=== PATIENT | male | born 1985 | race Caucasian/White ===

== ENCOUNTER 2018-12-18 23:42 | Inpatient (IN) | payer OTHER ==
[~2018-12-18] VITALS: Ht 182.9 cm; Wt 78.0 kg
[2018-12-19 01:16] LABS: BASOPHILS % (AUTO) 1.2 % (0.0-2.0); EOSINOPHILS % (AUTO) 1.1 % (1.0-6.0); HEMATOCRIT 52.6 % (41-53); LYMPHOCYTES # (AUTO) 2.5 K/uL (1.0-4.8); LYMPHOCYTES % (AUTO) 27.1 % (22.0-44.0); MEAN CORPUSCULAR HEMOGLOBIN 32.2 pg (26.0-34.0); MEAN CORPUSCULAR HGB CONC 34.2 G/dL (31.0-37.0); MEAN CORPUSCULAR VOLUME 94 fL (80-100); MONOCYTES # (AUTO) 0.6 K/uL (0.1-1.0); MONOCYTES % (AUTO) 6.2 % (2.0-9.0); NEUTROPHILS # (AUTO) 5.8 K/uL (1.8-7.7); NEUTROPHILS % (AUTO) 64.4 % (40.0-70.0); PLATELET COUNT (AUTO) 367 K/uL (150-450); RED BLOOD CELL COUNT(AUTO) 5.59 MIL/uL (4.50-5.90); RED CELL DISTRIBUTION WIDTH 14.6 % (11.5-14.5)
[2018-12-19 01:24] LABS: ANION GAP 14 mmol/L (8-16); CALCIUM, TOTAL 9.2 mg/dL (8.8-10.5); CARBON DIOXIDE 26 mmol/L (22-29); CHLORIDE 103 mmol/L (98-107); CREATININE 1.06 mg/dL (0.60-1.30); GLOMERULAR FILTR. RATE CALC > 60 mL/min (>60); GLUCOSE,RANDOM 107 mg/dL (70-110); POTASSIUM 3.9 mmol/L (3.5-5.1); SODIUM SERUM 143 mmol/L (136-145); UREA NITROGEN, BLOOD 7 mg/dL (7-18)
[2018-12-19 01:28] LABS: ALANINE AMINOTRANSFERASE 103 U/L (12-78); ALBUMIN 4.3 g/dL (3.4-5.0); ALKALINE PHOSPHATASE 117 U/L (46-116); ASPARTATE AMINOTRANSFERASE 54 U/L (15-37); BILIRUBIN,TOTAL 0.3 mg/dL (0.1-1.0); TOTAL PROTEIN, SERUM 9.2 g/dL (6.4-8.2)
[2018-12-19] MEDS ORDERED: HALOPERIDOL 5 MG TABLET PO PRN (01:30)
[2018-12-19 02:02] LABS: AMPHET/METH SCREEN,URINE NEGATIVE (NEGATIVE); BARBITURATE SCREEN, URINE NEGATIVE (NEGATIVE); BENZODIAZEPINES SCREEN,URINE NEGATIVE (NEGATIVE); CANNABINOID SCREEN,URINE POSITIVE (NEGATIVE); COCAINE SCREEN,URINE NEGATIVE (NEGATIVE); METHADONE SCREEN, URINE NEGATIVE (NEGATIVE); OPIATE SCREEN,URINE NEGATIVE (NEGATIVE)
[2018-12-19 02:18] LABS: PHENCYCLIDINE SCREEN,URINE NEGATIVE (NEGATIVE)
[2018-12-19 02:50] LABS: CHOLESTEROL 230 mg/dL (131-200); FREE T4 (FREE THYROXINE) 0.79 ng/dL (0.76-1.46); HDL CHOLESTEROL 58 mg/dL (40-60); LDL CHOL (CALC.) 150 mg/dL (0-130); THYROID STIMULATING HORMONE 1.79 uIU/mL (0.36-3.74); TRIGLYCERIDES 108 mg/dL (15-150)
[2018-12-19 03:05] LABS: HEMOGLOBIN A1C 5.4 % (4.5-6.2)
[2018-12-19] MEDS ORDERED: ONDANSETRON HCL 4 MG TABLET PO ONE (04:30)
[2018-12-19] MEDS: ESCITALOPRAM OXALATE 10 MG TABLET PO SCH (10:00)
[2018-12-19 10:29] VITALS: BP 147/91
[2018-12-19] MEDS ORDERED: LOPERAMIDE HCL 2 MG CAPSULE PO PRN (10:30)
[2018-12-19] MEDS ORDERED: IBUPROFEN 400 MG TABLET PO PRN (10:30)
[2018-12-19] MEDS ORDERED: MAGNESIUM HYDROXIDE SUSPENSION 30 ML UDCUP PO PRN (10:30)
[2018-12-19] MEDS ORDERED: NICOTINE 14 MG/24 HOUR PATCH TD PRN (10:30)
[2018-12-19] MEDS ORDERED: CloNIDine HCL 0.1 MG TABLET PO PRN (10:30)
[2018-12-19] MEDS ORDERED: MAG HYDROX/AL HYDROX/SIMETH ES 30 ML SUSPENSION UDCUP PO PRN (10:30)
[2018-12-19] MEDS ORDERED: ACETAMINOPHEN 325 MG TABLET PO PRN (10:30)
[2018-12-19] MEDS ORDERED: DOCUSATE SODIUM 100 MG CAPSULE PO PRN (10:30)
[2018-12-19] MEDS ORDERED: PETROLATUM,WHITE 71 GM JELLY TP PRN (10:30)
[2018-12-19] MEDS ORDERED: GuaiFENesin/D-METHORPHAN [SUGAR-FREE] 200-20MG/10 ML SYRUP UDCUP PO PRN (10:30)
[2018-12-19] MEDS ORDERED: ONDANSETRON HCL 4 MG TABLET PO PRN (10:30)
[2018-12-19] MEDS ORDERED: ALBUTEROL SULFATE HFA 90 MCG/PUFF 8 GM INHALER IH PRN (10:30)
[2018-12-19] MEDS: LORazepam 2 MG TABLET PO PRN (17:28)
[2018-12-19 19:22] VITALS: BP 148/84
[2018-12-19] MEDS: ZOLPIDEM TARTRATE 10 MG TABLET PO PRN (21:25)
[2018-12-20 08:49] LABS: BASOPHILS % (AUTO) 0.9 % (0.0-2.0); EOSINOPHILS % (AUTO) 1.1 % (1.0-6.0); HEMATOCRIT 45.9 % (41-53); HEMOGLOBIN 15.7 g/dL (13.5-17.5); LYMPHOCYTES # (AUTO) 1.8 K/uL (1.0-4.8); LYMPHOCYTES % (AUTO) 21.6 % (22.0-44.0); MEAN CORPUSCULAR HEMOGLOBIN 32.3 pg (26.0-34.0); MEAN CORPUSCULAR HGB CONC 34.2 G/dL (31.0-37.0); MEAN CORPUSCULAR VOLUME 94 fL (80-100); MONOCYTES % (AUTO) 11.4 % (2.0-9.0); NEUTROPHILS # (AUTO) 5.5 K/uL (1.8-7.7); PLATELET COUNT (AUTO) 258 K/uL (150-450); RED BLOOD CELL COUNT(AUTO) 4.86 MIL/uL (4.50-5.90)
[2018-12-20 09:11] LABS: ALANINE AMINOTRANSFERASE 88 U/L (12-78); ALBUMIN 3.9 g/dL (3.4-5.0); ALKALINE PHOSPHATASE 97 U/L (46-116); ANION GAP 6 mmol/L (8-16); ASPARTATE AMINOTRANSFERASE 45 U/L (15-37); BILIRUBIN,TOTAL 1.1 mg/dL (0.1-1.0); CALCIUM, TOTAL 9.3 mg/dL (8.8-10.5); CARBON DIOXIDE 30 mmol/L (22-29); CHLORIDE 98 mmol/L (98-107); CHOL/HDL RATIO 4.1 (4.2-7.3); CHOLESTEROL 199 mg/dL (131-200); CREATININE 0.96 mg/dL (0.60-1.30); GLOMERULAR FILTR. RATE CALC > 60 mL/min (>60); GLUCOSE,RANDOM 125 mg/dL (70-110); HDL CHOLESTEROL 49 mg/dL (40-60); LDL CHOL (CALC.) 122 mg/dL (0-130); POTASSIUM 3.9 mmol/L (3.5-5.1); SODIUM SERUM 134 mmol/L (136-145); THYROID STIMULATING HORMONE 2.34 uIU/mL (0.36-3.74); TOTAL PROTEIN, SERUM 8.2 g/dL (6.4-8.2); TRIGLYCERIDES 138 mg/dL (15-150)
[2018-12-20 09:17] LABS: HEMOGLOBIN A1C 5.2 % (4.5-6.2); UREA NITROGEN, BLOOD 11 mg/dL (7-18)
[2018-12-20] MEDS: ESCITALOPRAM OXALATE 10 MG TABLET PO SCH (09:39)
[2018-12-20] MEDS: LORazepam 2 MG TABLET PO PRN ×2 (09:41→17:29)
[2018-12-20 11:57] VITALS: BP 137/91
[2018-12-20 19:39] VITALS: BP 147/91
[2018-12-20] MEDS: ZOLPIDEM TARTRATE 10 MG TABLET PO PRN (20:43)
[2018-12-21] MEDS: ESCITALOPRAM OXALATE 10 MG TABLET PO SCH (08:56)
[2018-12-21] MEDS: LORazepam 2 MG TABLET PO PRN ×2 (09:08→16:28)
[2018-12-21 10:45] VITALS: BP 128/93
[2018-12-21 16:45] VITALS: BP 124/67
[2018-12-21] MEDS: ZOLPIDEM TARTRATE 10 MG TABLET PO PRN (20:46)
[2018-12-22] MEDS: ESCITALOPRAM OXALATE 10 MG TABLET PO SCH (07:59)
[2018-12-22] MEDS: LORazepam 2 MG TABLET PO PRN ×2 (07:59→16:28)
[2018-12-22 10:12] VITALS: BP 132/90
[2018-12-22] MEDS ORDERED: ESCI10TA PO (10:53)
== END 2018-12-22 16:45 | disposition home or self-care (01) | DRG 881 ==
LOC: EMS 23:43 → 3EI 12-19 01:30
PROVIDERS: ADMIT Psychiatry & Neurology Child & Adolescent Psychiatry; ATTEND Psychiatry & Neurology Child & Adolescent Psychiatry
DX: F32.9 Major depressive disorder, single episode, unspecified (principal); R45.851 Suicidal ideations; F41.9 Anxiety disorder, unspecified; F17.210 Nicotine dependence, cigarettes, uncomplicated; F12.90 Cannabis use, unspecified, uncomplicated; F10.129 Alcohol abuse with intoxication, unspecified; F19.10 Other psychoactive substance abuse, uncomplicated; E78.5 Hyperlipidemia, unspecified; Z71.41 Alcohol abuse counseling and surveillance of alcoholic; Z88.1 Allergy status to other antibiotic agents; Z71.51 Drug abuse counseling and surveillance of drug abuser; Y90.8 Blood alcohol level of 240 mg/100 ml or more
CPT/HCPCS: 83036; 84439; 84443; G0480; Q0162